=== PATIENT | male | born 1985 | race African-American/Black ===

== ENCOUNTER 2017-03-09 09:31 | Emergency (ER) | payer OTHER ==
[~2017-03-09] VITALS: Ht 185.4 cm; Wt 88.0 kg
[~2017-03-09 09:31] MED LIST: CYCL-36 PO; DARV PO; LORT5TAB PO; MEDR4PAK3 PO; PROM25SU8 PO; ROBA750T3 PO; VICOTAB4 PO; Z.0.NO CURRENT MEDS
[2017-03-09 09:33] VITALS: BP 155/75; PULSE 74; RESP 17; TEMP 98.1; O2SAT 99
[2017-03-09] MEDS ORDERED: ERYTHROMYCIN 0.5% OPTH OINT 3.5 GM TUBO LEFT EYE ONE (10:00)
[2017-03-09] MEDS ORDERED: ERYTOIN10 LEFT EYE (10:05)
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
== END 2017-03-09 10:49 | disposition home or self-care (01) ==
LOC: NEPK 09:31
DX: S05.02XA Injury of conjunctiva and corneal abrasion without foreign body, left eye, initial encounter (principal); T26.12XA Burn of cornea and conjunctival sac, left eye, initial encounter; X12.XXXA Contact with other hot fluids, initial encounter; Y99.0 Civilian activity done for income or pay
CPT/HCPCS: 99283

== ENCOUNTER 2017-10-19 22:35 | Emergency (ER) | payer SELFPAY ==
[~2017-10-19] VITALS: Ht 185.4 cm; Wt 92.0 kg
[~2017-10-19 22:35] MED LIST changes: +ERYTOIN10 LEFT EYE
[2017-10-19 22:37] VITALS: BP 128/73; PULSE 58; RESP 16; TEMP 98.6; O2SAT 98
[2017-10-20] MEDS ORDERED: DICL75TA PO (00:44)
[2017-10-20] MEDS ORDERED: NAPROXEN 500 MG TAB PO ONE (00:45)
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
== END 2017-10-20 01:22 | disposition home or self-care (01) ==
LOC: NEPK 22:35
DX: M25.562 Pain in left knee (principal); Z72.0 Tobacco use
CPT/HCPCS: 99282